=== PATIENT | female | born 1990 | race Caucasian/White ===

== ENCOUNTER 2023-06-13 05:14 | Day surgery (SDC) | payer OTHER ==
[2023-06-06 09:25] VITALS: BMI 48.4
[2023-06-13] MEDS ORDERED: ONDANSETRON 4 MG/2 ML VIAL IVPUSH PRN (12:57)
[2023-06-13] MEDS ORDERED: ACETAMINOPHEN 1000 MG/100 ML BAG IVPB PRN (12:57)
[2023-06-13] MEDS ORDERED: oxyCODONE HCL 5 MG TABLET PO PRN ×2 (12:57)
[2023-06-13] MEDS ORDERED: LACTATED RINGERS SOLUTION 1,000 ML IV SCH (13:00)
[2023-06-13] MEDS ORDERED: LIDOCAINE HCL/PF 2% SDV 5ML VIAL ONE (13:05)
[2023-06-13] MEDS ORDERED: MIDAZOLAM HCL 2 MG/2 ML SINGLE DOSE VIAL ONE (13:05)
[2023-06-13] MEDS ORDERED: FENTANYL CITRATE/PF 50 MCG/ML VIAL ONE ×2 (13:05→13:20)
[2023-06-13] MEDS ORDERED: PROPOFOL 40 ML ONE (13:05)
[2023-06-13] MEDS ORDERED: KETOROLAC TROMETHAMINE 30 MG/1 ML VIAL ONE (13:06)
[2023-06-13] MEDS ORDERED: ceFAZolin SODIUM 1 GM VIAL ONE (13:15)
[2023-06-13] MEDS: ceFAZolin SODIUM 1 GM VIAL IVPB ONE ×3 (13:18→13:21)
[2023-06-13] MEDS: LIDOCAINE HCL 1%, 10 MG/ML (50 mL VIAL) SQ ONE (13:23)
[2023-06-13] MEDS: BACITRACIN ZINC 15 GM TUBE TOPICAL OINTMENT TP ONE (13:40)
[2023-06-13 15:06] VITALS: RESP 18
[2023-06-13 15:58] VITALS: BP 121/71; PULSE 78; TEMP 98.2
== END 2023-06-13 15:40 | disposition home or self-care (01) ==
LOC: JASU-SURG 05:14
PROVIDERS: ATTEND Surgery
PROC: 0HBU0ZX Excision of Left Breast, Open Approach, Diagnostic (ICD-10-PCS; principal; 2023-06-13 13:30)
DX: N60.32 Fibrosclerosis of left breast (principal)
CPT/HCPCS: 81025; 82962; 88307-TC; 94760